=== PATIENT | female | born 1970 | race Caucasian/White ===

== ENCOUNTER → 2025-06-01 | Outpatient (CLI) | payer OTHER, SELFPAY ==
--- NOTE | 2025-06-01 13:30 | XR_ITS ---
Examination: Screening digital mammography, bilateral Computer aided detection 3-D breast Tomosynthesis, bilateral Date and time of exam: June 01, 2025 1337 hours Compared to mammograms dating to November 08, 2022 Indication: Screening Technique: Nonmagnified MLO, CC views of the breasts to been obtained, reconstructed from 3-D Tomosynthesis images. R2 computer aided detection program utilized for evaluation of suspicious masses and/or abnormal calcifications. 3-D Tomosynthesis images obtained. Findings: Scattered areas of fibroglandular density. Benign calcifications No interval suspicious masses Impression: BI-RADS category II: Benign Findings. Recommend 1 year follow-up mammogram.
[2025-06-01 15:38] LABS: Anion Gap 8 (7-16); BUN/Creatinine Ratio 13 Ratio (12-20); Blood Urea Nitrogen 15 mg/dL (9-23); Calcium 9.5 mg/dL (8.3-10.6); Carbon Dioxide 27.9 mMol/L (20.0-31.0); Chloride 104 mMol/L (98-107); Creatinine (Component) 1.2 mg/dL (0.6-1.3); Glucose 92 mg/dL (74-106); Osmolality,Calculated 280 (275-295); Potassium 4.6 mMol/L (3.4-5.1); Sodium 140 mMol/L (136-145); eGFR 53 See Note
== END | disposition home or self-care (01) ==
LOC: CDIM 13:22 → COPL 14:06
PROVIDERS: Visit Provider Radiology Diagnostic Radiology
DX: Z12.39 Encounter for other screening for malignant neoplasm of breast (principal); R92.8 Other abnormal and inconclusive findings on diagnostic imaging of breast; R92.323 Mammographic fibroglandular density, bilateral breasts; Z79.899 Other long term (current) drug therapy
CPT/HCPCS: 36415; 77063; 77067; 80048

== ENCOUNTER → 2025-06-14 | Outpatient (CLI) | payer OTHER, SELFPAY ==
[2025-06-14 12:31] LABS: Glucose Estimated Average 111 mg/dL (80-131); Hemoglobin A1C 5.5 % Hgb (4.8-6.0)
[2025-06-14 12:32] LABS: Alanine Aminotransferase 13 U/L (10-49); Albumin, Serum 4.3 gm/dL (3.5-5.0); Albumin/Globulin Ratio 1.5 (1.2-2.2); Alkaline Phosphatase 68 U/L (46-116); Anion Gap 8 (7-16); Aspartate Amino Transferase 19 U/L (0-34); BUN/Creatinine Ratio 26 Ratio (12-20); Bilirubin,Total 0.4 mg/dL (0.3-1.2); Blood Urea Nitrogen 21 mg/dL (9-23); Calcium 10.0 mg/dL (8.3-10.6); Calcium (Corrected) 10.0 mg/dL (8.5-10.1); Carbon Dioxide 27.3 mMol/L (20.0-31.0); Chloride 106 mMol/L (98-107); Creatinine (Component) 0.8 mg/dL (0.6-1.3); Globulin 2.8 gm/dL (2.3-3.5); Glucose 91 mg/dL (74-106); Osmolality,Calculated 284 (275-295); Potassium 4.8 mMol/L (3.4-5.1); Sodium 141 mMol/L (136-145); Total Protein 7.1 gm/dL (5.7-8.2); eGFR > 60 See Note
== END | disposition home or self-care (01) ==
PROVIDERS: PCP Internal Medicine; Referring Provider Specialist; Visit Provider Specialist
DX: Z01.812 Encounter for preprocedural laboratory examination (principal); Z12.11 Encounter for screening for malignant neoplasm of colon
CPT/HCPCS: 36415; 80053; 83036

== ENCOUNTER → 2025-07-07 | Outpatient (CLI) | payer OTHER, SELFPAY ==
--- NOTE | 2025-07-07 09:49 | XR_ITS ---
Examination: CT abdomen with intravenous contrast CT pelvis with intravenous contrast 2-D coronal reconstructions 2-D sagittal reconstructions Date and time of exam:July 07, 2025, 11:00 AM COMPARISON: 07/06/2024 INDICATIONS: Intermittent right lower abdominal pain beginning one year ago. CTDI: vol (mGy) 18.7 DLP: (mGycm) 1122 Technique: Multiple axial sections of the abdomen and pelvis have been obtained. 64 slice high-resolution scanner used. 3 mm axial sections have been obtained, post intravenous injection 60 cc [id number] 2-D sagittal, coronal reconstructions obtained. Low dose protocols were performed. One or more of the following dose reduction techniques were used; automated exposure control, adjustment of the mA and/or KV according to patient size, use of iterative reconstruction technique. Findings: Interval 14 mm pulmonary nodule noncalcified in the left midlung No visualized liver or splenic lesion No gallstones No pancreatic or adrenal mass No renal or ureteral calculi, no hydronephrosis Tiny fat-containing umbilical hernia. No bowel obstruction Normal appendix No diverticulitis Urinary bladder intact No pelvic mass IMPRESSION: 14 mm pulmonary nodule noncalcified in the left midlung, suggest elective CT chest without contrast follow-up Normal appendix No acute process in the abdomen or pelvis
== END | disposition home or self-care (01) ==
LOC: CDIM 09:23
PROVIDERS: PCP Internal Medicine
DX: R91.1 Solitary pulmonary nodule (principal)
CPT/HCPCS: 74177; A4649; Q9967

== ENCOUNTER 2025-08-10 16:31 | Emergency (ER) | payer OTHER, SELFPAY ==
[2025-08-10 16:32] VITALS: BMI 36.1
[2025-08-10 17:43] VITALS: BP 104/71; PULSE 75; RESP 18; TEMP 36.6; O2SAT 96
--- NOTE | 2025-08-10 18:12 | XR_ITS ---
EXAMINATION: PA lateral chest 2 views TECHNIQUE: Upright PA and lateral chest 2 views Date and time: August 10, 2025, 1819 hours, comparison August 04, 2022 INDICATIONS: Chest pain fatigue 1 week. FINDINGS: Suspicious for 10 mm pulmonary nodule left upper lobe Normal heart size No lobar pneumonia or pulmonary edema IMPRESSION: Recommend apical lordotic chest to exclude 10 mm pulmonary nodule left upper lobe
--- NOTE | 2025-08-10 18:13 | EDNOTE_ITS ---
ED General RME/HPI General Chief complaint: General Adult/Misc Complain Stated complaint: I THINK I MAY HAVE PNEUMONIA Time Seen by Provider: 08/10/25 18:11 Arrival date/time: 08/10/25 16:31 RME / HPI RME / HPI narrative: 54-year-old patient presents emergency department with complaint of I think he may have pneumonia patient states she has pain to her mid back between her shoulder blades for the past 1 week. Patient states this is reminiscent of the same symptoms she had when she had pneumonia about a year ago. Pain is worse with deep inspiration. She denies diabetes hypertension or chest pain. She denies dyspnea on exertion. She denies tobacco use. She denies sick contacts or recent travel. She denies any alleviating factors. Related Data Previous Rx's ?Medication ?Instructions ?Recorded azithromycin 250 mg tablet See Rx Instructions PO .COM PLEX #6 08/04/22 tabs methocarbamol 500 mg tablet 500 mg PO QHSPRN PRN Spasm #10 tabs 08/04/22 meloxicam 7.5 mg tablet 7.5 mg PO QDAY #14 tabs 06/14 02/03 albuterol sulfate 90 mcg/actuation 2 inh inhalation Q6 H #1 ea 08/10/25 breath activated powder inhaler,sensor (Proair Digihaler) prednisone 20 mg tablet 20 mg PO QDAY 5 days #5 tabs 08/10/25 Allergies Allergy/AdvReac Type Severity Reaction Status Date / Time codeine Allergy Nausea Verified 08/10/25 16:35 Review of Systems Constitutional Constitutional: Reports system reviewed and no additional complaints, except as documented ENT Ears, Nose, Mouth, and Throat: Reports system reviewed and no additional complaints, except as documented Cardiovascular Cardiovascular: Reports system reviewed and no additional complaints, except as documented Respiratory Respiratory: Reports system reviewed and no additional complaints, except as documented Gastrointestinal Gastrointestinal: Reports system reviewed and no additional complaints, except as documented Musculoskeletal Musculoskeletal: Reports system reviewed and no additional complaints, except as documented Neurologic Neurologic: Reports system reviewed and no additional complaints, except as documented ED Exam General General appearance: Present alert and in no apparent distress Head Head exam: Present normocephalic ENT ENT exam: Present normal exam and normal oropharynx Neck Neck exam: Present normal inspection and full ROM Chest Chest inspection: Present normal inspection and symmetric chest wall rise Respiratory Respiratory exam: Present normal lung sounds bilaterally Cardiovascular Cardiovascular exam: Present regular rate and normal rhythm Neurological Exam Neurological exam: Present alert and oriented X3 Course Quality Measures none Orders Category Date Time Status Bedside COVID-19 Antigen Test NOW Care 08/10/25 18:12 Active XR chest 2V Stat Exams 08/10/25 18:12 Completed CBC [CBC] Stat Lab 08/10/25 18:39 Completed CMP [Comprehensive Metabolic Panel] Stat Lab 08/10/25 18:39 Completed Lipase Stat Lab 08/10/25 18:39 Completed Procalcitonin Stat Lab 08/10/25 18:39 Completed Vital Signs Vital signs: Vital Signs Temperature 97.8 F 08/10/25 17:43 Pulse Rate 75 08/10/25 17:43 Respiratory Rate 18 08/10/25 17:43 Blood Pressure 104/71 08/10/25 17:43 Pulse Oximetry (%) 96 08/10/25 17:43 Oxygen Delivery Method Room Air 08/10/25 17:43 Discharge Plan Plan Patient Disposition: HOME (Self Care) Prescriptions/Referrals Prescriptions/Med Rec: New prednisone 20 mg tablet 20 mg PO QDAY 5 Days Qty: 5 0RF Taper: Prednisone Taper 20 mg DAILY for 2 Days and 0 Hour 10 mg DAILY for 2 Days and 0 Hour 5 mg DAILY for 7 Days and 0 Hour Proair Digihaler 90 mcg/actuation aero powdr breath act w/sensor 2 inh inhalation Q6H Qty: 1 0RF No Action azithromycin 250 mg tablet See Rx Instructions .ROUTE .COMPLEX Qty: 6 0RF Rx Instructions: For 250 mg dose pack: take 500 mg today (day 1), then 250 mg for 4 days (days 2-5) methocarbamol 500 mg tablet 500 mg PO QHSPRN PRN (Reason: Spasm) Qty: 10 0RF meloxicam 7.5 mg tablet 7.5 mg PO QDAY Qty: 14 0RF Referrals: Renae Paige MD [Primary Care Provider] - In 1 week Problem List Clinical Impression: Acute bronchospasm Patient/Caregiver Discharge Instructions Education Materials: ED Bronchospasm (Adult) Print Language: Occitan Stand Alone Forms: [employer]ena Award Info., Patient Portal Info Letter MDM Narrative MDM hospital course (for use when minimal MDM required): 54-year-old patient with no previous significant cardiac or pulmonary issues presents emergency department with complaint of pain with deep inspiration of her lungs imaging studies were unremarkable except for a pulmonary nodule. Patient is stable to DC home to follow-up with PCP patient remained afebrile nontoxic-appearing throughout ED stay Diagnosis Differential Diagnosis ED Complaint MDM: Pneumonia, bronchitis, bronchospasm, MT, PE, medical screening.
[2025-08-10 18:52] LABS: Basophils # (Auto) 0.0 Thou/mm3 (0.0-0.2); Basophils % (Auto) 1 % (0-2.5); Eosinophils # (Auto) 0.1 Thou/mm3 (0.0-0.5); Eosinophils % (Auto) 1 % (0-10); Hematocrit 40.6 % (36.0-46.0); Hemoglobin 13.8 g/dL (12.0-16.0); Immature Granulocytes Auto 0.02 Thou/mm3 (0.00-0.00); Lymphocytes # (Auto) 3.0 Thou/mm3 (1.0-4.8); Lymphocytes % (Auto) 37 % (10-50); Mean Corpuscular HGB Conc 34.0 g/dl (31.0-37.0); Mean Corpuscular Hemoglobin 30.0 pg (25.0-35.0); Mean Corpuscular Volume 88 fL (80-100); Monocytes # (Auto) 0.5 Thou/mm3 (0.0-0.8); Monocytes % (Auto) 7 % (0-12); Neutrophils # (Auto) 4.4 Thou/mm3 (1.8-7.7); Neutrophils % (Auto) 55 % (37-80); Nucleated Red Blood Cell # 0.00 Thou/mm3 (0.00-0.00); Nucleated Red Blood Cell % 0 /100 WBC (0); Platelet Count 207 Thou/mm3 (140-440); RDW Standard Deviation 42.5 fL (36.4-46.3); Red Blood Count 4.60 Miln/mm3 (4.00-5.20); White Blood Count 8.1 Thou/mm3 (3.6-11.0)
[2025-08-10 19:16] LABS: Alanine Aminotransferase 8 U/L (10-49); Albumin, Serum 4.6 gm/dL (3.5-5.0); Albumin/Globulin Ratio 1.9 (1.2-2.2); Alkaline Phosphatase 77 U/L (46-116); Anion Gap 10 (7-16); Aspartate Amino Transferase 18 U/L (0-34); BUN/Creatinine Ratio 19 Ratio (12-20); Bilirubin,Total 0.2 mg/dL (0.3-1.2); Blood Urea Nitrogen 19 mg/dL (9-23); Calcium 9.4 mg/dL (8.3-10.6); Calcium (Corrected) 9.4 mg/dL (8.5-10.1); Carbon Dioxide 28.2 mMol/L (20.0-31.0); Chloride 107 mMol/L (98-107); Creatinine (Component) 1.0 mg/dL (0.6-1.3); Estimated Creatinine Clearance 83.5 mL/min (>60); Globulin 2.4 gm/dL (2.3-3.5); Glucose 87 mg/dL (74-106); Lipase 36 U/L (12-53); Osmolality,Calculated 289 (275-295); Potassium 4.5 mMol/L (3.4-5.1); Procalcitonin 0.04 ng/ml (0.0-0.49); Sodium 145 mMol/L (136-145); Total Protein 7.0 gm/dL (5.7-8.2); eGFR > 60 See Note
== END 2025-08-10 21:58 | disposition home or self-care (01) ==
PROVIDERS: Physician Assistant; Emergency Provider Emergency Medicine; PCP Internal Medicine
DX: J98.01 Acute bronchospasm (principal)
CPT/HCPCS: 36415; 71046; 80053; 83690; 84145; 85025; 87811; 99283

== ENCOUNTER → 2025-09-05 | Outpatient (CLI) | payer OTHER, SELFPAY ==
--- NOTE | 2025-09-05 12:30 | XR_ITS ---
Examination: CT chest, without intravenous contrast. Sagittal and coronal 2-D reconstructions. Exam date and time: September 05, 2025, 12:31 p.m. INDICATIONS: 14 mm pulmonary nodule left midlung on CT abdomen 07/07/2025 CTDI:vol (mGy) 13.1 DLP: (mGycm) 500 Technique: Multiple 3.0 mm axial sections of the chest to been obtained. Bone and lung density settings are obtained. Sagittal and coronal 2-D reconstructions have been obtained. Low dose protocols were performed. One or more of the following dose reduction techniques were used; automated exposure control, adjustment of the mA and/or KV according to patient size, use of iterative reconstruction technique. Findings: No thoracic aortic aneurysm dilatation Pulmonary artery segments are not enlarged No paratracheal tracheobronchial or bronchopulmonary adenopathy 5 mm pulmonary nodule right upper lobe image 101 14 mm pulmonary nodule left upper lobe image 145 2 mm pulmonary nodule left lower lobe image 167 3 mm pulmonary nodule right upper lobe image 176 No pneumonia or pulmonary edema No visualized liver or splenic lesion Contracted gallbladder No pancreatic or adrenal mass Moderate renal scarring IMPRESSION: Pulmonary nodules as above, differential would include pulmonary nodular metastatic disease The 14 mm pulmonary nodule left upper lobe is amenable to CT-guided percutaneous biopsy for diagnosis
== END | disposition home or self-care (01) ==
LOC: SCAT 12:09
PROVIDERS: PCP Internal Medicine; Referring Provider Internal Medicine; Visit Provider Internal Medicine
DX: R91.8 Other nonspecific abnormal finding of lung field (principal)
CPT/HCPCS: 71250

== ENCOUNTER → 2025-09-21 | Outpatient (CLI) | payer OTHER, SELFPAY ==
[2025-09-22 13:32] LABS: Cocci Serology, IgM Negative (Negative)
[2025-09-24 14:19] LABS: Cocci Serology, IgG Negative (Negative)
== END | disposition home or self-care (01) ==
LOC: COPL 14:07
PROVIDERS: PCP Internal Medicine; Referring Provider Internal Medicine; Visit Provider Internal Medicine
DX: M25.50 Pain in unspecified joint (principal); R05.9 Cough, unspecified; R53.83 Other fatigue; R91.8 Other nonspecific abnormal finding of lung field
CPT/HCPCS: 36415; 86331; 86635

== ENCOUNTER → 2025-09-26 | Outpatient (CLI) | payer OTHER, SELFPAY ==
[2025-09-26 11:45] LABS: Quantiferon-TB* See Sep Rpt
== END | disposition home or self-care (01) ==
LOC: COPL 11:17
PROVIDERS: PCP Internal Medicine; Referring Provider Internal Medicine; Visit Provider Internal Medicine
DX: Z11.1 Encounter for screening for respiratory tuberculosis (principal)
CPT/HCPCS: 86480